=== PATIENT | male | born 1960 | race Caucasian/White ===

== ENCOUNTER 2020-08-04 10:35 | Outpatient (CLI) | payer OTHER, SELFPAY ==
--- NOTE | 2020-08-04 10:47 | MR_ITS ---
WS: [id number] MRI BRAIN WITH HIGH-RESOLUTION IMAGING THROUGH THE INTERNAL AUDITORY CANALS WITHOUT AND WITH CONTRAST HISTORY: DIZZINESS AND GIDDINESS COMPARISON: 01/17/2018 TECHNIQUE: Multiplanar, multisequence imaging is performed through the brain. Additional 3 mm imaging performed in multiple planes through the internal auditory canal. Postcontrast imaging with 17 ml's of Prohance. No acute intracranial hemorrhage, midline shift, edema or mass effect. No evidence for an acute infarct. Diffusion-weighted images are normal. There are a few scattered are as of increased T2 and FLAIR signal especially adjacent to the occipital horns of the lateral ventric les. Mild progression of chronic ischemic disease since 01/17/2018. No prior infarct. Mild cerebral at rophy. Ventricles and extra-axial spaces are normal. No inferior displacement of cerebellar tonsils. Clivus and pituitary gland are normal. Internal and external auditory canals: Unremarkable. Cranial nerves VII and VIII complexes: Unremarkable. No enhancement or mass. Cerebellopontine angles: Normal. Paranasal sinuses: Normal. Mastoid air cells: Normal. Calvarium and scalp: Normal. Visualized [place] and dural venous sinuses demonstrate no abnormality. MR/MR iac's wo/w con* [id number] IMPRESSION: 1. No mass at the cerebellopontine angles or at the internal auditory canals. 2. Mild chronic microvascular ischemic disease with minimal progression since 01/17/2018. 3. No enhancing masses or signal abnormality.
== END 2020-08-04 10:36 | disposition home or self-care (01) ==
LOC: RADWPI 10:41
PROVIDERS: PCP Emergency Medicine Emergency Medical Services; Visit Provider Specialist
DX: R42 Dizziness and giddiness (principal); I67.82 Cerebral ischemia
CPT/HCPCS: 70553; A9579

== ENCOUNTER 2020-12-06 08:42 | Outpatient (RCR) | payer OTHER, SELFPAY | END 2020-12-31 23:59 | disposition home or self-care (01) | LOC: SPT 08:42 | PROVIDERS: PCP Emergency Medicine Emergency Medical Services; Referring Provider Emergency Medicine Emergency Medical Services; Visit Provider Emergency Medicine Emergency Medical Services | DX: R42 Dizziness and giddiness (principal) | CPT/HCPCS: 95992; 97110; 97161 ==

== ENCOUNTER → 2022-04-26 14:19 | Outpatient (BNVA) | payer OTHER, SELFPAY | PROVIDERS: PCP Emergency Medicine Emergency Medical Services; Referring Provider Emergency Medicine Emergency Medical Services; Visit Provider Surgery | DX: Z86.010 Personal history of colon polyps (principal) | CPT/HCPCS: 99203 ==

== ENCOUNTER 2022-06-08 06:06 | Day surgery (SDC) | payer OTHER, SELFPAY ==
[2022-06-06 14:42] VITALS: BMI 29.5
[2022-06-08 06:22] VITALS: BP 158/100; PULSE 77; RESP 18; TEMP 36.1; O2SAT 96
[2022-06-08] MEDS: sodium chloride 0.9% 1,000 ML 30 ML IV (06:33)
--- NOTE | 2022-06-08 06:38 | ANES.PREANE2 ---
Pre-Anesthetic Assessment Height/Weight: Height 1.75 m Weight 90.718 kg Temp Pulse Resp BP Pulse Ox O2 Del Method 97 F L 77 18 158/100 96 06/08/22 06:22 06/08/22 06:22 06/08/22 06:22 06/08/22 06:22 06/08/22 06:22 06/08/22 06:22 Preop Diagnosis: History of colon polyps Operation Date: 06/08/22 07:30 Proposed Procedures p Colonoscopy 09238,Z12.11(Not Applicable) - Jacoby Mendenhall MD Familial anesthetic complications: None Was Beta Samia taken within 24 hours: N/A Was Clonidine taken within 24 hours: N/A Last intake: Intake Last Liquid Date 06/07/22 Last Liquid Time 22:00 Last Solid Date 06/06/22 Last Solid Time 00:00 Social Alcohol (Social) and Tobacco (Cigar every once in a while, marijuana daily (extracts the oil and uses it in capsule form)) Exam alert, oriented x 3, clear to auscultation bilaterally and regular rate & rhythm Airway Submandibular: within normal limits Cervical ROM: within normal limits Mallampati: Class III Dentition: chipped (Right upper) and full History/ROS No significant history except as noted and No significant complaints Pulmonary Shortness of Breath (SOB with activity) and None reported CV/HEM Hypertension and None reported None reported Hepatic None reported GI Gastroesophageal Reflux Disease (Well controlled with medications) Metabolic Hyperlipidemia Musc/skel Lower Back Pain and Osteoarthritis/DJD Neuropsych None reported Anesthetic Plan ASA status: 2 Anesthesia: Anesthesia Evaluation, General and MAC Risk of > 500 ml blood loss (7ml/kg in children): No Medications/Allergies Home Medications Medication Instructions Recorded Confirmed Last Taken Type cyclobenzaprine 10 mg tablet 10 mg PO DAILY 04/26/22 06/08/22 06/06/22 History omeprazole 20 mg capsule,delayed 20 mg PO DAILY 04/26/22 06/08/22 06/06/22 History release rosuvastatin 10 mg tablet 10 mg PO DAILY 04/26/22 06/08/22 06/06/22 History triamterene 75 1 tab PO .one-half daily 04/26/22 06/08/22 06/06/22 History mg-hydrochlorothiazide 50 mg tablet Allergies Allergy/AdvReac Type Severity Reaction Status Date / Time Penicillins Allergy unknown Verified 04/27/22 16:53 Current Medications Generic Name Dose Route Start Last Admin Trade Name Freq PRN Reason Stop Dose Admin Sodium Chloride 1,000 mls @ 30 mls/hr 06/08/22 06:15 06/08/22 06:33 Sodium Chloride 0.9% IV 30 mls/hr .Q24H EMILY Administration PFSH Anesthesia Family History (Updated 04/26/22 @ 14:40 by MIKE Mayen) Mother Cancer Diabetes Social History Smoking and tobacco status: current every day smoker Data Anesthesia Cardiac Studies: No Data to Display
--- NOTE | 2022-06-08 06:41 | P.HP_ITS ---
Same Day Surgery H&P Indication for Procedure/HPI DATE OF PROCEDURE: June 08, 2022 CHIEF COMPLAINT/INDICATIONFOR SURGICAL PROCEDURE: History of colon polyp PREOP DIAGNOSIS: History of colon polyps PLANNED PROCEDURE: Operation Date: 06/08/22 07:30 Proposed Procedures p Colonoscopy 54449,Z12.11(Not Applicable) - Jacoby Mendenhall MD 04/26/2022 This is a pleasant 61 years old gentleman referred to my practice with history of colon polyps.? About 6 to 7 years ago.? He denies bleeding per rectum or history of colon cancer.? And no history of intentional weight loss. 06/08/2022 Patient comes today for surveillance colonoscopy and he denies any changes since last time he was seen at my office. ROS All systems have been reviewed negative except as for the above or per problem list. Medications/Allergies* Home Medications Medication Instructions Recorded Confirmed Type cyclobenzaprine 10 mg tablet 10 mg PO DAILY 04/26/22 06/08/22 History omeprazole 20 mg capsule,delayed 20 mg PO DAILY 04/26/22 06/08/22 History release rosuvastatin 10 mg tablet 10 mg PO DAILY 04/26/22 06/08/22 History triamterene 75 1 tab PO .one-half daily 04/26/22 06/08/22 History mg-hydrochlorothiazide 50 mg tablet Allergies/Adverse Reactions Allergy/AdvReac Type Severity Reaction Status Date / Time Penicillins Allergy unknown Verified 04/27/22 16:53 Current Medications: Generic Name Dose Route Start Last Admin Trade Name Freq PRN Reason Stop Dose Admin Sodium Chloride 1,000 mls @ 30 mls/hr 06/08/22 06:15 06/08/22 06:33 Sodium Chloride 0.9% IV 30 mls/hr .Q24H EMILY Administration Pertinent History/Comorbid Conditions* Family History (Updated 04/26/22 @ 14:40 by MIKE Mayen) Diabetes Mother Cancer Mother Social History Smoking and tobacco status: current every day smoker Pertinent Exam Findings alert, oriented x 3, regular rate & rhythm and procedure specific exam findings (Abdominal exam nontender nondistended soft) Recommendations Surgery/Procedure today (Colonoscopy with possible biopsy) Coding Level of Care Code Acute Roof Truss Builder for Ayesha Basurto
[2022-06-08 07:42] VITALS: BP 124/81; PULSE 74; RESP 12; TEMP 36.1; O2SAT 94
[2022-06-08 07:54] VITALS: BP 122/83; PULSE 66; RESP 18; O2SAT 97
--- NOTE | 2022-06-08 14:41 | ANE.PACU2 ---
Inpatient post-anesthesia follow up: Airway intact: Yes Vital signs: Temperature 97.0 F Pulse Rate 66 Respiratory Rate 18 Blood Pressure 122/83 Pulse Oximetry 97 Oxygen Delivery Me thod Room Air Oxygen Flow Rate Fraction of Inspir ed Oxygen Hydration adequate: Yes Nausea and vomiting: No Pain level: 1 Mental status: Baseline
== END 2022-06-08 08:11 | disposition home or self-care (01) ==
PROVIDERS: PCP Emergency Medicine Emergency Medical Services; Visit Provider Surgery
PROC: 0DJD8ZZ Inspection of Lower Intestinal Tract, Via Natural or Artificial Opening Endoscopic (ICD-10-PCS; CPT 45378; principal; 2022-06-08 07:30)
DX: Z12.11 Encounter for screening for malignant neoplasm of colon (principal); K57.30 Diverticulosis of large intestine without perforation or abscess without bleeding; I10 Essential (primary) hypertension; K21.9 Gastro-esophageal reflux disease without esophagitis; E78.5 Hyperlipidemia, unspecified
CPT/HCPCS: 45378; J2704; J7030

== ENCOUNTER → 2022-06-28 16:05 | Outpatient (BNVA) | payer OTHER, SELFPAY | PROVIDERS: PCP Emergency Medicine Emergency Medical Services; Visit Provider Surgery | DX: Z09 Encounter for follow-up examination after completed treatment for conditions other than malignant neoplasm (principal); K57.31 Diverticulosis of large intestine without perforation or abscess with bleeding | CPT/HCPCS: 99212 ==

== ENCOUNTER 2022-07-28 10:58 | Emergency (ER) | payer OTHER, SELFPAY ==
[2022-07-28 11:31] VITALS: BP 147/104; PULSE 88; RESP 16; TEMP 36.5; O2SAT 97
[2022-07-28 13:36] VITALS: BP 182/103; PULSE 74; RESP 20; O2SAT 94
--- NOTE | 2022-07-28 13:50 | CT_ITS ---
WS: [id number] CT HEAD NONCONTRAST HISTORY: dizziness TECHNIQUE: Contiguous axial imaging performed through the brain in 2.5 mm imaging. Bone and soft tiss ue windows. Sagittal and coronal reformats reviewed. All CT scans at [facility] use at least one of these dose optimization techniques: automated exposure control; mA and/or kV adjustment per pa tient size (includes targeted exams where dose is matched to clinical indication); or iterative recon struction. DLP: 1219.98 mGy.cm COMPARISON: None available. No acute intracranial hemorrhage, midline shift or mass effect. No atrophy or prior infarcts or herniation. Ventricles: Normal size with no hydrocephalus. No inferior displacement of cerebellar tonsils. Paranasal sinuses: As visualized are clear. Mastoid air cells: Well pneumatized. No soft tissue mass or inflammation along the internal or staffing branch manager al auditory canals. Calvarium and scalp: Skull is intact with no soft tissue edema or swelling. CT/CT head wo con* [id number] IMPRESSION: Negative head CT.
--- NOTE | 2022-07-28 13:59 | W.ED.DIZZY ---
Documented by User: Brianne Cruz PA-C 07/28/22 15:31 HPI - Dizziness General: Chief Complaint: Dizziness Stated Complaint: Vertigo, had injection in left ear Time Seen by Provider: 07/28/22 13:28 Source: patient Mode of arrival: wheelchair Limitations: no limitations History of Present Illness: HPI Narrative: 62-year-old male with a history of M?ni?re's disease presents to the ER today for dizziness for the last several days. Patient reports he has had multiple ear injections before, the last one being about 6 months ago. Patient reports earlier this week he started feeling funny again and went to the ENT. They did another injection. Patient reports he was okay for about 24 hours before things turned significantly worse. Patient reports he has been unable to get out of bed for 2 days. Patient's had nausea and some vomiting. Patient reports he has not ate or drank in 2 days. Patient reports this is when the most severe cases he is ever had of symptoms. Patient denies any associated chest pain or shortness of breath. Review of Systems General: Reports: 10 or more systems reviewed and unremarkable except in HPI and below PFSH ED PFSH: Family History Mother Cancer Diabetes Social History Smoking and tobacco status: current every day smoker Physical Exam Const: COMMON NORMALS: average body habitus, patient oriented x3, no limitations, healthy appearing, alert and well nourished HENMT: COMMON NORMALS: normocephalic, atraumatic, external ears normal, TM's normal bilaterally, Normal nasal mucous membranes and turbinates present and moist oral mucous membranes HEAD & SCALP: normocephalic and atraumatic NOSE: Normal nasal mucous membranes and turbinates present EXTERNAL EAR: Yes external ears normal TYMPANIC MEMBRANE: TM's normal bilaterally Eye: COMMON NORMALS: Equal, round and reactive pupils present, EOMs intact bilaterally and conjunctivae normal CONJUNCTIVA: Yes conjunctivae normal PUPIL: Yes Equal, round and reactive pupils present Resp: COMMON NORMALS: normal respiratory effort, No retractions and clear to auscultation bilaterally AUSCULTATION: clear to auscultation bilaterally Cardio: COMMON NORMALS: regular rate, regular rhythm and No murmurs present (Cardio) RATE: regular rate RHYTHM: regular rhythm Extremity: COMMON NORMALS: normal to inspection and full ROM Neuro: COMMON NORMALS: patient oriented x3 SENSORIUM/ORIENTATION: Yes alert Psych: COMMON NORMALS: mental status grossly normal, Normal thought process present and cooperative THOUGHT PROCESS: Normal thought process present Skin: COMMON NORMALS: no rashes or lesions noted and no wounds GENERAL SKIN EXAM: no rashes or lesions noted Course ED course: Patient has a history of M?ni?re's however this is the worst he is ever felt with the dizziness. Patient reports room is not spinning around him however that is not typically his symptom with his M?ni?re's episodes. Patient reports he had an injection about 4 days ago and was okay for about 24 hours before things got significantly worse. We will go ahead and get a head CT given symptoms are worse than ever before. We will also do labs as patient has not ate or drink in 2 days. Vital Signs: Vital signs: Vital Signs Temperature 97.7 F 07/28/22 11:31 Pulse Rate 74 07/28/22 13:36 Respiratory Rate 20 H 07/28/22 13:36 Blood Pressure 136/92 07/28/22 15:38 Pulse Oximetry 94 07/28/22 13:36 Oxygen Delivery Me thod 07/28/22 13:36 MDM - Dizziness Medical Decision Making Labs are mostly unremarkable for anything that could be causing patient's symptoms. Head CT was normal. This is likely a M?ni?re's flareup versus vertigo of other cause. We will send patient home with meclizine and also Valium in case the meclizine is not effective. Should contact his ENT on Sunday for a follow-up. Patient also has Zofran or another antiemetic at home to take for his nausea. I recommend patient rest at this time. He should follow-up to the ER with any new or worsening symptoms. Patient verbalized understanding and was in agreement with the treatment plan. Lab Data 07/28/22 14:20 07/28/22 14:[address] 07/28/22 13:50 IMPRESSION: Negative head CT. Laboratory Results WBC 8.6 10^3/uL (4.0-10.0) 07/28/22 14:20 RBC 5.11 10^6/uL (4.1-5.3) 07/28/22 14:20 Hgb 16.0 g/dL (11.7-16.6) 07/28/22 14:20 Hct 46.2 % (42.0-52.0) 07/28/22 14:20 MCV 90.4 fl (80-94) 07/28/22 14:20 MCH 31.3 pg (28.0-34.0) 07/28/22 14:20 MCHC 34.6 g/dL (30.0-36.0) 07/28/22 14:20 RDW 12.1 % (12.1-15.1) 07/28/22 14:20 Plt Count 331 10^3/cmm (130-400) 07/28/22 14:20 MPV 9.7 fL (7.4-10.4) 07/28/22 14:20 Neut % (Auto) 74.6 % 07/28/22 14:20 Lymph % (Auto) 15.7 % 07/28/22 14:20 [place] % (Auto) 8.7 % 07/28/22 14:20 Eos % (Auto) 0.1 % 07/28/22 14:20 Baso % (Auto) 0.6 % 07/28/22 14:20 Neut # (Auto) 6.44 10^3/uL (1.8-7.7) 07/28/22 14:20 Lymph # (Auto) 1.4 10^3/uL (0.8-4.8) 07/28/22 14:20 [place] # (Auto) 0.8 10^3/uL (0.2-0.9) 07/28/22 14:20 Eos # (Auto) 0.0 10^3/uL (0.0-0.8) 07/28/22 14:20 Baso # (Auto) 0.1 10^3/uL (0.0-0.1) 07/28/22 14:20 Nucleated RBC % (auto) 0 % 07/28/22 14:20 Nucleated RBCs # 0.0 /100WBC 07/28/22 14:20 Sodium 141 mmol/L (136-145) 07/28/22 14:20 Potassium 3.5 mmol/L (3.5-5.1) 07/28/22 14:20 Chloride 106 mmol/L (98-107) 07/28/22 14:20 Carbon Dioxide 20 mmol/L (22-29) L 07/28/22 14:20 Anion Gap 18.5 (5-19) 07/28/22 14:20 BUN 17 mg/dL (8-23) 07/28/22 14:20 Creatinine 0.9 mg/dL (0.7-1.2) 07/28/22 14:20 GFR Calculation 85.5 mL/min (90-130) L 07/28/22 14:20 Glucose 145 mg/dL (65-115) H 07/28/22 14:20 Calculated Osmolality 296 mOsm/kg (285-295) H 07/28/22 14:20 Calcium 9.7 mg/dL (8.5-10.5) 07/28/22 14:20 Total Bilirubin 0.6 mg/dL (0.15-1.2) 07/28/22 14:20 AST 30 U/L (0-40) 07/28/22 14:20 ALT 44 U/L (0-41) H 07/28/22 14:20 Alkaline Phosphatase 72 U/L (40-130) 07/28/22 14:20 Total Protein 7.8 g/dL (6.6-8.7) 07/28/22 14:20 Albumin 4.5 g/dL (3.5-5.2) 07/28/22 14:20 Globulin 3.3 g/dL (1.3-4.6) 07/28/22 14:20 Critical Care Time Critical Care Time: Critical Care Time: No Discharge Plan Discharge Patient Disposition: Home Clinical Impression: Vertigo Menieres disease Qualifiers: Laterality: unspecified laterality Qualified Code(s): H81.09 - Meniere's disease, unspecified ear Condition: Stable Prescriptions: New meclizine 25 mg tablet 25 mg PO TID PRN (Reason: dizziness or vertigo) Qty: 14 0RF Valium 2 mg tablet 2 mg PO TID PRN (Reason: dizziness or vertigo) Qty: 12 0RF No Action cyclobenzaprine 10 mg tablet 10 mg PO DAILY triamterene-hydrochlorothiazid 75-50 mg tablet 1 tab PO .one-half daily omeprazole 20 mg capsule,delayed release(DR/EC) 20 mg PO DAILY rosuvastatin 10 mg tablet 10 mg PO DAILY Men's Multi-Vitamin Tablet 1 tab PO DAILY Discharge Orders: Discharge ED (Routine); Ordered 07/28/22 Ordered By: Brianne Cruz Referrals: Hitesh Amado DO [Primary Care Provider] - Discharge Diet: Usual diet Discharge Activity: Increase activity as tolerated Patient Instructions: Opioid Safety, Pain Management Activity Restrictions/Additional Instructions: Take meclizine and Valium as prescribed. I would recommend taking the meclizine first and if that is ineffective you can take the Valium. Take your home medications for nausea. Contact ENT on Sunday. Return to the ER with new or worsening symptoms. Coding Level of Care Code ED Utility Bill Complaints Investigator for Chg Fwd Exam Comprehensive Documented by User: Shemar Pierre DO 07/29/22 06:18 HPI - Dizziness General: Chief Complaint: Dizziness Stated Complaint: Vertigo, had injection in left ear Time Seen by Provider: 07/28/22 13:28 [facility] ED PFSH: Family History Mother Cancer Diabetes Social History Smoking and tobacco status: current every day smoker Course Vital Signs: Vital signs: Vital Signs Temperature 97.7 F 07/28/22 11:31 Pulse Rate 74 07/28/22 13:36 Respiratory Rate 20 H 07/28/22 13:36 Blood Pressure 136/92 07/28/22 15:38 Pulse Oximetry 94 07/28/22 13:36 Oxygen Delivery Me thod 07/28/22 13:36 MDM - Dizziness Medical Decision Making Labs are mostly unremarkable for anything that could be causing patient's symptoms. Head CT was normal. This is likely a M?ni?re's flareup versus vertigo of other cause. We will send patient home with meclizine and also Valium in case the meclizine is not effective. Should contact his ENT on Sunday for a follow-up. Patient also has Zofran or another antiemetic at home to take for his nausea. I recommend patient rest at this time. He should follow-up to the ER with any new or worsening symptoms. Patient verbalized understanding and was in agreement with the treatment plan. Chart reviewed and patient discussed with midlevel. Agree with assessment and plan. Medical Records I reviewed the patient's medical records. Lab Data I reviewed the patient's lab results. 07/28/22 14:20 07/28/22 14:[address] 07/28/22 13:50 IMPRESSION: Negative head CT. Laboratory Results WBC 8.6 10^3/uL (4.0-10.0) 07/28/22 14:20 RBC 5.11 10^6/uL (4.1-5.3) 07/28/22 14:20 Hgb 16.0 g/dL (11.7-16.6) 07/28/22 14:20 Hct 46.2 % (42.0-52.0) 07/28/22 14:20 MCV 90.4 fl (80-94) 07/28/22 14:20 MCH 31.3 pg (28.0-34.0) 07/28/22 14:20 MCHC 34.6 g/dL (30.0-36.0) 07/28/22 14:20 RDW 12.1 % (12.1-15.1) 07/28/22 14:20 Plt Count 331 10^3/cmm (130-400) 07/28/22 14:20 MPV 9.7 fL (7.4-10.4) 07/28/22 14:20 Neut % (Auto) 74.6 % 07/28/22 14:20 Lymph % (Auto) 15.7 % 07/28/22 14:20 [place] % (Auto) 8.7 % 07/28/22 14:20 Eos % (Auto) 0.1 % 07/28/22 14:20 Baso % (Auto) 0.6 % 07/28/22 14:20 Neut # (Auto) 6.44 10^3/uL (1.8-7.7) 07/28/22 14:20 Lymph # (Auto) 1.4 10^3/uL (0.8-4.8) 07/28/22 14:20 [place] # (Auto) 0.8 10^3/uL (0.2-0.9) 07/28/22 14:20 Eos # (Auto) 0.0 10^3/uL (0.0-0.8) 07/28/22 14:20 Baso # (Auto) 0.1 10^3/uL (0.0-0.1) 07/28/22 14:20 Nucleated RBC % (auto) 0 % 07/28/22 14:20 Nucleated RBCs # 0.0 /100WBC 07/28/22 14:20 Sodium 141 mmol/L (136-145) 07/28/22 14:20 Potassium 3.5 mmol/L (3.5-5.1) 07/28/22 14:20 Chloride 106 mmol/L (98-107) 07/28/22 14:20 Carbon Dioxide 20 mmol/L (22-29) L 07/28/22 14:20 Anion Gap 18.5 (5-19) 07/28/22 14:20 BUN 17 mg/dL (8-23) 07/28/22 14:20 Creatinine 0.9 mg/dL (0.7-1.2) 07/28/22 14:20 GFR Calculation 85.5 mL/min (90-130) L 07/28/22 14:20 Glucose 145 mg/dL (65-115) H 07/28/22 14:20 Calculated Osmolality 296 mOsm/kg (285-295) H 07/28/22 14:20 Calcium 9.7 mg/dL (8.5-10.5) 07/28/22 14:20 Total Bilirubin 0.6 mg/dL (0.15-1.2) 07/28/22 14:20 AST 30 U/L (0-40) 07/28/22 14:20 ALT 44 U/L (0-41) H 07/28/22 14:20 Alkaline Phosphatase 72 U/L (40-130) 07/28/22 14:20 Total Protein 7.8 g/dL (6.6-8.7) 07/28/22 14:20 Albumin 4.5 g/dL (3.5-5.2) 07/28/22 14:20 Globulin 3.3 g/dL (1.3-4.6) 07/28/22 14:20 Discharge Plan Discharge Patient Disposition: Home Clinical Impression: Vertigo Menieres disease Qualifiers: Laterality: unspecified laterality Qualified Code(s): H81.09 - Meniere's disease, unspecified ear Condition: Stable Prescriptions: New meclizine 25 mg tablet 25 mg PO TID PRN (Reason: dizziness or vertigo) Qty: 14 0RF Valium 2 mg tablet 2 mg PO TID PRN (Reason: dizziness or vertigo) Qty: 12 0RF No Action cyclobenzaprine 10 mg tablet 10 mg PO DAILY triamterene-hydrochlorothiazid 75-50 mg tablet 1 tab PO .one-half daily omeprazole 20 mg capsule,delayed release(DR/EC) 20 mg PO DAILY rosuvastatin 10 mg tablet 10 mg PO DAILY Men's Multi-Vitamin Tablet 1 tab PO DAILY Discharge Orders: Discharge ED (Routine); Ordered 07/28/22 Ordered By: Brianne Cruz Referrals: Hitesh Amado, DO [Primary Care Provider] - Discharge Diet: Usual diet Discharge Activity: Increase activity as tolerated Patient Instructions: Opioid Safety, Pain Management Activity Restrictions/Additional Instructions: Take meclizine and Valium as prescribed. I would recommend taking the meclizine first and if that is ineffective you can take the Valium. Take your home medications for nausea. Contact ENT on Sunday. Return to the ER with new or worsening symptoms. Coding Level of Care Code ED Utility Bill Complaints Investigator for Ayesha Fwgulshan Exam Comprehensive
[2022-07-28] MEDS: sodium chloride 0.9% 1,000 ML 999 ML IV (14:30)
[2022-07-28] MEDS: labetalol 5 mg/mL SDV 20mL 20 MG IVP (14:30)
[2022-07-28 14:43] LABS: Basophils # 0.1 10^3/uL (0.0-0.1); Basophils % 0.6 %; Eosinophils % 0.1 %; Hematocrit 46.2 % (42.0-52.0); Lymphocytes # 1.4 10^3/uL (0.8-4.8); Lymphocytes % 15.7 %; Mean Corpuscular HGB Conc 34.6 g/dL (30.0-36.0); Mean Corpuscular Hemoglobin 31.3 pg (28.0-34.0); Mean Corpuscular Volume 90.4 fl (80-94); Mean Platelet Volume 9.7 fL (7.4-10.4); Monocytes # 0.8 10^3/uL (0.2-0.9); Monocytes % 8.7 %; Neutrophils # 6.44 10^3/uL (1.8-7.7); Neutrophils % 74.6 %; Nucleated Red Blood Cells % 0 %; Platelet Count 331 10^3/cmm (130-400); Red Blood Count 5.11 10^6/uL (4.1-5.3); Red Cell Distribution Width 12.1 % (12.1-15.1); White Blood Count 8.6 10^3/uL (4.0-10.0)
[2022-07-28 15:01] VITALS: BP 136/92
[2022-07-28 15:03] LABS: Alanine Aminotransferase 44 U/L (0-41); Albumin Level 4.5 g/dL (3.5-5.2); Alkaline Phosphatase 72 U/L (40-130); Anion Gap 18.5 (5-19); Aspartate Amino Transferase 30 U/L (0-40); Blood Urea Nitrogen 17 mg/dL (8-23); Calcium 9.7 mg/dL (8.5-10.5); Carbon Dioxide 20 mmol/L (22-29); Chloride 106 mmol/L (98-107); Globulin 3.3 g/dL (1.3-4.6); Glomerular Filtration Rate 85.5 mL/min (90-130); Glucose 145 mg/dL (65-115); Osmolality Calculated 296 mOsm/kg (285-295); Potassium 3.5 mmol/L (3.5-5.1); Sodium 141 mmol/L (136-145); Total Bilirubin 0.6 mg/dL (0.15-1.2); Total Protein 7.8 g/dL (6.6-8.7)
[2022-07-28] MEDS: meclizine 25 mg tablet 50 MG PO (15:09)
[2022-07-28 15:38] VITALS: BP 136/92
== END 2022-07-28 15:35 | disposition home or self-care (01) ==
PROVIDERS: Emergency Provider Physician Assistant; PCP Emergency Medicine Emergency Medical Services
DX: H81.09 Meniere's disease, unspecified ear (principal); F17.210 Nicotine dependence, cigarettes, uncomplicated
CPT/HCPCS: 36415; 70450; 80053; 85025; 96361; 96374; 99285; J3490; J7030; J8597

== ENCOUNTER 2024-07-07 14:47 | Outpatient (CLI) | payer OTHER, SELFPAY ==
[2024-07-07 15:47] LABS: Prostate Specific Antigen Scr 1.31 ng/mL (0-4)
== END 2024-07-07 14:48 | disposition home or self-care (01) ==
LOC: LAB 14:53
PROVIDERS: PCP Family Medicine; Visit Provider Urology
DX: Z12.5 Encounter for screening for malignant neoplasm of prostate (principal)
CPT/HCPCS: 36415; G0103

== ENCOUNTER 2024-08-19 20:00 | Outpatient (CLI) | payer OTHER, SELFPAY | END 2024-08-19 20:01 | disposition home or self-care (01) | LOC: SLEEP 08-20 00:27 | PROVIDERS: PCP Family Medicine; Visit Provider Internal Medicine | DX: G47.36 Sleep related hypoventilation in conditions classified elsewhere (principal); G47.61 Periodic limb movement disorder; R40.0 Somnolence | CPT/HCPCS: 95810 ==

== ENCOUNTER 2025-04-01 08:39 | Outpatient (CLI) | payer OTHER, SELFPAY ==
--- NOTE | 2025-04-01 09:18 | ECG_ITS ---
[email or web address]: 2025-[facility]01 Pat Name: Mayank Quan Department: Room: Gender: Male Earth Science Teacher: : 1960 Requested By: Lolis Prieto Order Number: [id number] Galo MD: Griffin Glaser M.D. Interpretive Statements EXERCISE DATA: The patient was exercised by Alex protocol. Baseline heart rate was 63 beats per minute. Baseline blood pressure was 102/80 millimeters of mercury. Maximal predicted heart rate was 156 beats per minute. Maximum heart rate achieved was 143, which was 91% of the maximum predicted heart rate. Maximum blood pressure was 199/88 millimeters of mercury. Total exercise time was 6 minutes 20 seconds. Maximum METs achieved was 10.2. The reason for ending the test was achieving maximal effort. The patient had no symptomatic complaints during the stress test. ELECTROCARDIOGRAM: BASELINE: Showed sinus rhythm, possible old inferior infarction, incomplete right bundle branch block, no significant ST-T changes at the baseline noted. [] EXERCISE: At the peak exercise level, [] No significant ST-T changes suggestive of ischemia noted. [] RECOVERY: During the recovery period, heart rate dropped appropriately. No significant ST-T changes in the recovery suggestive of ischemia noted. [] CONCLUSION: 1. Exercise capacity average for age. 2. Heart rate response was [appropriate]. 3. Blood pressure response was [appropriate]. 4. No symptoms suggestive of ischemia. 5. Electrocardiogram portion of the stress test was not suggestive of ischemia. Electronically Signed On 04-05-2025 12:50:18 CDT by Griffin Glaser M.D. [email or web address]
--- NOTE | 2025-04-01 09:18 | NMCV_ITS ---
NM prakash perf SPECT r/s* [id number] Quan Mayank Age: 64 Gender: M : 1960 Exam Date: 04/01/2025 10:02 Ordering Phys: Lolis Prieto MD Technologist: VITALIY Reyes Exam Location: [facility] Indications: cp STRESS TEST Please see separate stress test report in [facility] for full findings IMAGE PROTOCOL Rest/Stress 1 Exercise Day Radiopharmaceutical Dose (mCi) Administration Site Administered by Rest: Tc-99m 10.4 IV VITALIY Reyes Sestamibi Stress:Tc-99m 32.9 IV VITALIY Morales Sestamibi Rest: 01-Apr-2025 60 Discovery 630 Stress: 01-Apr-2025 30 Discovery 630 Radiopharmaceutical was injected at 85 % maximum heart rate. Images obtained in supine and prone position. SPECT RESULTS Technical Quality: Good Raw Data Analysis: Normal Image Corrections: No attenuation or motion correction applied Summed Stress Score: 4 Summed Rest Score: 0 Summed Difference Score: 4 PERFUSION FINDINGS SPECT images demonstrate homogeneous tracer distribution throughout the myocardium. FUNCTIONAL RESULTS (calculated via Gated SPECT) Stress Image LV EF (%): 68 Stress EDV (mL):76 TID: 0.83 Stress ESV (mL):24 FUNCTIONAL FINDINGS: There is normal left ventricular systolic function. IMPRESSIONS 1. Normal myocardial perfusion with no evidence of infarct or ischemia 2. Normal left ventricular systolic function, EF 68% Griffin Glaser MD, FACC (Electronically Signed) Final Date: 01 April 2025 22:20 S
[2025-04-01 09:19] VITALS: BMI 31.2
[2025-04-01 10:50] VITALS: BP 191/70; PULSE 95
== END 2025-04-01 08:40 | disposition home or self-care (01) ==
PROVIDERS: PCP Family Medicine; Visit Provider Family Medicine
DX: R53.83 Other fatigue (principal); R07.9 Chest pain, unspecified
CPT/HCPCS: 36415; 78452; 93017; 96374; A9500

== ENCOUNTER → 2025-08-06 13:15 | Outpatient (BNVA) | payer OTHER, SELFPAY | PROVIDERS: PCP Family Medicine; Referring Provider Nurse Practitioner Family; Visit Provider Nurse Practitioner Family | DX: M79.18 Myalgia, other site (principal); M54.41 Lumbago with sciatica, right side; G89.29 Other chronic pain | CPT/HCPCS: 20553; 99204; 99214; J1010; J3490 ==

== ENCOUNTER → 2025-08-20 10:05 | Outpatient (BNVA) | payer OTHER, SELFPAY | PROVIDERS: PCP Family Medicine; Visit Provider Nurse Practitioner Family | DX: M54.41 Lumbago with sciatica, right side (principal); M79.604 Pain in right leg; G89.29 Other chronic pain | CPT/HCPCS: 99214 ==